=== PATIENT | male | born 1945 | race Caucasian/White ===

== ENCOUNTER 2021-09-12 15:17 | Emergency (ER) | payer MEDICARE ==
[2021-09-12 16:11] LABS: BASOPHIL 0.1 % (0-2); EOSINOPHIL 0 % (0-7); HCT 38.7 % (42.0-52.0); HGB 13.1 g/dl (13.2-18.0); LYMPHOCYTE 3.3 % (15-48); MCH 32.9 pg (25.0-31.0); MCHC 33.9 g/dL (32.0-36.0); MCV 97.2 fL (78.0-100.0); MONOCYTE 5.6 % (0-12); MPV 9.2 fL (6.0-9.5); NEUTROPHIL 90.4 % (41-80); NRBC 0; PLT 225 K/uL (150-400); RBC 3.98 M/uL (4.70-6.00); RDW 12.2 % (11.5-14.0); WBC 18.7 K/uL (4.0-10.5)
[2021-09-12 16:32] LABS: ALBUMIN 3.6 g/dL (3.4-5.0); BILIRUBIN - TOTAL 0.7 mg/dL (0.2-1.0); BUN/CREAT RATIO (CALC) 21.3 RATIO; CREATININE 0.75 mg/dL (0.67-1.17); GLOBULIN (CALCULATION) 3.6 g/dL; POTASSIUM 4.3 mmol/L (3.5-5.1); TOTAL PROTEIN 7.2 g/dL (6.4-8.2)
[2021-09-12 17:10] LABS: LACTIC ACID 2.4 mmol/L (0.4-1.9)
[2021-09-12 17:52] LABS: PROTHROMBIN TIME 12.6 SECONDS (11.8-13.4); PTT 27.8 SECONDS (24.4-34.7)
== END 2021-09-13 10:55 | disposition other institution (70) ==
LOC: FER 15:17
PROVIDERS: Emergency Medicine; Nurse Practitioner Family
DX: A41.9 Sepsis, unspecified organism (principal); R65.20 Severe sepsis without septic shock; J80 Acute respiratory distress syndrome; I21.4 Non-ST elevation (NSTEMI) myocardial infarction; I25.2 Old myocardial infarction; Z88.0 Allergy status to penicillin; Z87.891 Personal history of nicotine dependence; Z20.822 Contact with and (suspected) exposure to COVID-19
CPT/HCPCS: 36415; 36600; 71045; 71275; 80053; 82728; 82803; 83605; 84145; 84484; 85025; 85379; 85610; 85730; 87040; 93005; 96365; 96366; 96367; 96368; 96375; 96376; C9113; J0330; J1644; J2060; J2250; J2704; J3010; J3490; J7030; J7050; Q9967; U0002